=== PATIENT | male | born 1985 | race Caucasian/White ===

== ENCOUNTER 2018-10-26 21:06 | Emergency (ER) | payer OTHER ==
[~2018-10-26] VITALS: Ht 180.3 cm; Wt 106.1 kg
[2018-10-26 21:19] VITALS: Ht 180.3 cm; Wt 106.1 kg
[2018-10-26 22:10] LABS: BASOPHIL % 0.8 % (0-2); PLATELET COUNT 189 x10^3mcL (130-400)
[2018-10-26 22:14] LABS: CALCIUM 9.1 mg/dL (8.5-10.1); CARBON DIOXIDE 31.4 mmol/L (21-32); CHLORIDE SERUM 102 mmol/L (98-107); CREATININE SERUM 0.8 mg/dL (0.7-1.3); GFR1 > 60 mL/min; GLUCOSE SERUM 101 mg/dL (74-106); POTASSIUM SERUM 3.5 mmol/L (3.5-5.1); SODIUM SERUM 140 mmol/L (136-145)
[2018-10-26 22:19] LABS: ALBUMIN 3.9 g/dL (3.4-5.0); ALKALINE PHOSPHATASE 75 U/L (46-116); ALT/SGPT 25 U/L (16-63); AST/SGOT 26 U/L (15-37); BILIRUBIN TOTAL 0.4 mg/dL (0.20-1.00); CHOLESTEROL 194 mg/dL (<200); HDL CHOLESTEROL 29 mg/dL (40-60); PHOSPHOROUS 4.2 mg/dL (2.5-4.9); URIC ACID 7.4 mg/dL (3.5-7.2)
[2018-10-26 23:16] VITALS: BP 113/64
== END 2018-10-26 23:17 | disposition home or self-care (01) ==
LOC: ED 21:06
PROVIDERS: Emergency Medicine
DX: K52.9 Noninfective gastroenteritis and colitis, unspecified (principal); E86.0 Dehydration; Z88.0 Allergy status to penicillin; Z90.89 Acquired absence of other organs
CPT/HCPCS: J1885; J2405; J7030